=== PATIENT | male | born 1955 | race Caucasian/White ===

== ENCOUNTER 2020-09-07 07:44 | Outpatient (CLI) | payer MEDICARE ==
--- NOTE | 2020-09-07 08:27 | CT ---
Exam: Noncontrast chest CT; CT lung scan low dose HISTORY:Nicotine dependence. Current smoker. 1/2 pack per day. COMPARISON: None TECHNIQUE: Low-dose screening lung CT is performed utilizing institutional protocol FINDINGS: Lung screening specific (LUNG-RADS): Category 1. No suspicious masses or nodules. Potential significant incidentals (lung RADS category S): None Pulmonary incidentals:Mild peribronchial thickening involving both upper lobes and middle lobe and yao th lower lobes. There are dependent atelectatic changes. Other incidentals: Minimal coronary artery calcifications. Moderate hiatal hernia. Scattered atherosc lerosis of the infrarenal abdominal aorta. IMPRESSION: 1. Lung RADS 1. Negative exam. No suspicious masses or nodules. 2. Lung Rask category S: Negative. No new or unknown potential significant incidental findings requir ing urgent additional evaluation 3. Other incidentals as above. Recommendation: Continued routine annual low-dose lung screening CT. Follow-up in one year. Transcribed Date/Time: 09/07/2020 9:07 AM
== END 2020-09-07 07:45 | disposition home or self-care (01) ==
LOC: BICCT 07:44
PROVIDERS: ATTEND Internal Medicine
DX: Z12.2 Encounter for screening for malignant neoplasm of respiratory organs (principal); F17.210 Nicotine dependence, cigarettes, uncomplicated; I25.10 Atherosclerotic heart disease of native coronary artery without angina pectoris; K44.9 Diaphragmatic hernia without obstruction or gangrene; I70.0 Atherosclerosis of aorta
CPT/HCPCS: G0297